=== PATIENT | female | born 1990 | race Native Hawaiian/Other Pacific Islander ===

== ENCOUNTER 2017-07-14 12:17 | Outpatient (CLI) | payer OTHER | END 2017-07-14 19:05 | disposition home or self-care (01) | LOC: RAD 12:17 | DX: M54.6 Pain in thoracic spine (principal) ==

== ENCOUNTER 2017-12-25 11:12 | Emergency (ER) | payer OTHER ==
[~2017-12-25] VITALS: Ht 152.4 cm; Wt 50.8 kg
[2017-12-25 11:20] VITALS: TEMP 98
[2017-12-25 13:35] VITALS: BP 124/78
== END 2017-12-25 13:35 | disposition home or self-care (01) ==
LOC: ED 11:12
DX: S99.812A Other specified injuries of left ankle, initial encounter (principal)
CPT/HCPCS: 96372; 99283; J1885

== ENCOUNTER 2018-12-02 21:50 | Emergency (ER) | payer OTHER ==
[~2018-12-02] VITALS: Ht 154.9 cm; Wt 58.1 kg
[2018-12-02 22:26] LABS: PLATELET COUNT 279 K/uL (152-353)
[2018-12-02 22:39] LABS: POTASSIUM 3.8 mmol/L (3.6-5.2); SODIUM 138 mmol/L (136-145)
[2018-12-03 02:00] VITALS: BP 124/75; TEMP 98.6
== END 2018-12-03 02:05 | disposition home or self-care (01) ==
LOC: ED 21:50
PROVIDERS: Emergency Medicine
DX: R07.89 Other chest pain (principal)
CPT/HCPCS: 36415; 80053; 80307; 82550; 82553; 84484; 85027; 93005; 96374; 96375; 99284; J1885

== ENCOUNTER 2019-01-12 10:57 | Outpatient (CLI) | payer OTHER | END 2019-01-12 19:21 | disposition home or self-care (01) | LOC: RAD 10:57 | DX: M79.601 Pain in right arm (principal); M79.641 Pain in right hand; M25.521 Pain in right elbow ==

== ENCOUNTER 2019-06-15 11:08 | Outpatient (CLI) | payer OTHER | END 2019-06-15 19:01 | disposition home or self-care (01) | LOC: RESP 11:08 | DX: R07.9 Chest pain, unspecified (principal); R00.2 Palpitations; R06.02 Shortness of breath; I10 Essential (primary) hypertension | CPT/HCPCS: 93225 ==

== ENCOUNTER 2019-09-24 18:21 | Emergency (ER) | payer OTHER ==
[~2019-09-24] VITALS: Ht 154.9 cm; Wt 59.0 kg
[2019-09-24 18:46] VITALS: BP 138/80; TEMP 98.1
== END 2019-09-24 21:26 | disposition home or self-care (01) ==
LOC: ED 18:21
DX: M79.605 Pain in left leg (principal)
CPT/HCPCS: 99281

== ENCOUNTER 2020-05-10 13:49 | Emergency (ER) | payer OTHER ==
[~2020-05-10] VITALS: Ht 157.5 cm; Wt 59.9 kg
[2020-05-10 13:53] VITALS: BP 139/92; TEMP 99.1
[2020-05-10 14:43] LABS: PLATELET COUNT 277 K/uL (152-353)
[2020-05-10 14:46] LABS: POTASSIUM 3.2 mmol/L (3.6-5.2); SODIUM 139 mmol/L (136-145)
== END 2020-05-10 15:32 | disposition home or self-care (01) ==
LOC: ED 13:49
PROVIDERS: Emergency Medicine
DX: R07.89 Other chest pain (principal); K21.9 Gastro-esophageal reflux disease without esophagitis
CPT/HCPCS: 80053; 82550; 82553; 84484; 85027; 85379; 93005; 99284

== ENCOUNTER 2020-05-22 07:03 | Outpatient (CLI) | payer OTHER ==
[2020-05-22 07:42] LABS: POTASSIUM 3.9 mmol/L (3.6-5.2)
[2020-05-22 08:11] LABS: PLATELET COUNT 229 K/uL (152-353)
== END 2020-05-22 23:27 | disposition home or self-care (01) ==
LOC: LABW 07:03
PROVIDERS: Internal Medicine
DX: I10 Essential (primary) hypertension (principal); R73.9 Hyperglycemia, unspecified
CPT/HCPCS: 36415; 80053; 80061; 81000; 81025; 82951; 82952; 83036; 83519; 83735; 84439; 84443; 85027; 86337

== ENCOUNTER 2021-01-25 08:14 | Outpatient (CLI) | payer OTHER | END 2021-01-25 22:43 | disposition home or self-care (01) | LOC: US 08:14 | PROVIDERS: ATTEND Registered Nurse | DX: R10.30 Lower abdominal pain, unspecified (principal) ==

== ENCOUNTER 2021-01-29 16:28 | Emergency (ER) | payer OTHER ==
[~2021-01-29] VITALS: Ht 157.5 cm; Wt 61.2 kg
[2021-01-29 16:58] VITALS: BP 149/84; TEMP 98.9
[2021-01-29] MEDS ORDERED: ACET-689 PO (17:18)
[2021-01-29] MEDS ORDERED: LYRICA25 MG PO (17:18)
[2021-01-29] MEDS ORDERED: COZAAR100 MG PO (17:19)
[2021-01-29] MEDS ORDERED: FIORICET/CODEIN1 CAP PO (17:19)
[2021-01-29] MEDS ORDERED: CETI10TA PO (17:20)
[2021-01-29] MEDS ORDERED: OMEPRAZOLE DR40 MG PO (17:20)
[2021-01-29] MEDS ORDERED: ALBU90AE13 INH (17:20)
[2021-01-29] MEDS ORDERED: HYDR25TA60 PO (17:20)
== END 2021-01-29 17:35 | disposition home or self-care (01) ==
LOC: ED 16:28
DX: R10.9 Unspecified abdominal pain (principal); Z53.21 Procedure and treatment not carried out due to patient leaving prior to being seen by health care provider
CPT/HCPCS: 99281

== ENCOUNTER 2021-05-30 16:41 | Emergency (ER) | payer OTHER ==
[~2021-05-30] VITALS: Ht 157.5 cm; Wt 64.0 kg
[~2021-05-30 16:41] MED LIST: ACET-689 PO; ALBU90AE13 INH; CETI10TA PO; COZAAR100 MG PO; FIORICET/CODEIN1 CAP PO; HYDR25TA60 PO; LYRICA25 MG PO; OMEPRAZOLE DR40 MG PO
[2021-05-30 16:52] VITALS: BP 128/76; TEMP 97.7
[2021-05-30] MEDS ORDERED: ACEBUTOLOL200 MG PO (17:11)
== END 2021-05-30 18:02 | disposition home or self-care (01) ==
LOC: ED 16:41
DX: M54.59 Other low back pain (principal); G89.29 Other chronic pain
CPT/HCPCS: 96372; 99283; J1885; J2360; J2930